=== PATIENT | female | born 1980 | race Caucasian/White ===

== ENCOUNTER 2020-10-26 12:59 | Emergency (ER) | payer SELFPAY ==
[~2020-10-26] VITALS: Ht 165 cm; Wt 73.0 kg
[2020-10-26] MEDS ORDERED: DOXY100T2 PO (13:48)
--- NOTE | 2020-10-26 13:48 | ED Integumentary General ---
General Chief Complaint: Bite-Animal/Human/Insect Stated Complaint: L ARM WOUND Nursing Triage Note: THE PT IS AMBULATORY TO THE ROOM WITHOUT DIFFICULTY. NO DISTRESS IS SEEN ON ARRIVAL. LOC IS NORMAL FOR THE PT. THE PT C/O OF AN INSECT BITE TO HER LEFT ELBOW. Source: patient Exam Limitations: no limitations History of Present Illness Date Seen by Provider: Oct 26, 2020 Time Seen by Provider: 13:45 Timing/Duration: just prior to arrival Severity: moderate Possible Cause: no cause identified Associated Symptoms: denies symptoms Allergies and Home Medications Patient Home Medication List Home Medication List Reviewed: Yes Review of Systems Review of Systems Constitutional: see HPI EENTM: see HPI Respiratory: no symptoms reported Cardiovascular: no symptoms reported Genitourinary: no symptoms reported Musculoskeletal: no symptoms reported Skin: no symptoms reported Psychiatric/Neurological: No Symptoms Reported Endocrine: No Symptoms Reported Physical Exam Vital Signs Vital Signs - First Documented 10/26/20 13:15 Temp 36.6 Pulse 112 B/P (MAP) 145/100 (115) Capillary Refill : Less Than 3 Seconds General Appearance: WD/WN, no apparent distress HEENT: PERRL/EOMI, normal ENT inspection Respiratory: no respiratory distress, no accessory muscle use Neurologic/Psychiatric: alert, normal mood/affect, oriented x 3 Skin: normal color, warm/dry Skin Problem Location: upper extremities Skin Problem Character: abscess, other (Tender fluctuant abscess to the left antecubital fossa with some surrounding cellulitis.) Procedures/Interventions I&D : Blade Size: 11 Progress Anesthetized with 0.5 mL of 1% lidocaine without epinephrine. Incision made with 11 blade scalpel. Large amount of purulent material expressed. Culture collected and sent to lab. Cavity irrigated with saline. Progress/Results/Core Measures Results/Orders My Orders Orders - KELLI MEDEL APRN Wound Culture (10/26/20 13:44) Vital Signs/I&O 10/26/20 13:15 Temp 36.6 Pulse 112 B/P (MAP) 145/100 (115) Blood Pressure Mean: 115 Departure Impression Primary Impression: Abscess Disposition: 01 HOME, SELF-CARE Condition: Stable Departure-Patient Inst. Decision time for Depature: 13:47 Patient Instructions: Abscess Incision and Drainage (DC) Add. Discharge Instructions: 1. Change the dressing as needed. Antibiotics as directed All discharge instructions reviewed with patient and/or family. Voiced understanding. Scripts Doxycycline Hyclate (Doxycycline Hyclate) 100 Mg Tablet 100 MG PO BID, #20 TAB 0 Refills Prov: KELLI MEDEL APRN 10/26/20 KELLI MEDEL APRN Oct 26, 2020 13:48
[2020-10-26 13:58] VITALS: BP 140/90
== END 2020-10-26 13:58 | disposition home or self-care (01) ==
LOC: ER 13:01
DX: L02.414 Cutaneous abscess of left upper limb (principal)
CPT/HCPCS: 87070; 87077; 87205; 99283